=== PATIENT | male | born 1935 | race Caucasian/White ===

== ENCOUNTER 2017-08-24 09:42 | Observation (INO) | payer MEDICARE, BC ==
[2017-08-23 14:57] LABS: BASOPHILS # (AUTO) 0.1 X10'3 (0-0.2); BASOPHILS % (AUTO) 0.6 % (0-1); EOSINOPHILS # (AUTO) 0.4 X10'3 (0-0.9); EOSINOPHILS % (AUTO) 4.3 % (0-6); HEMATOCRIT 36.2 % (42.0-52.0); HEMOGLOBIN 12.8 g/dl (14.0-17.9); LYMPHOCYTES # (AUTO) 0.8 X10'3 (1.1-4.8); LYMPHOCYTES % (AUTO) 8.6 % (21-51); MEAN CORPUSCULAR HEMOGLOBIN 31.7 PG (27.0-31.0); MEAN CORPUSCULAR HGB CONC 35.4 % (33.0-36.5); MEAN CORPUSCULAR VOLUME 89.5 FL (78-98); MEAN PLATELET VOLUME 7.1 FL (7.4-10.4); MONOCYTES # (AUTO) 0.9 X10'3 (0-0.9); NEUTROPHILS # (AUTO) 7.2 X10'3 (1.8-7.7); NEUTROPHILS % (AUTO) 76.5 % (42-75); PLATELET COUNT 329 X10'3 (140-440); RED BLOOD COUNT 4.04 X10'6 (4.70-6.10); WHITE BLOOD COUNT 9.5 X10'3 (4.5-11.0)
[2017-08-23 15:07] LABS: INR 1.1 INR; PARTIAL THROMBOPLASTIN TIME 29 SECONDS (22-32)
[2017-08-23 15:08] LABS: ALBUMIN 3.4 G/DL (3.4-5.0); ANION GAP 11 (8-16); BLOOD UREA NITROGEN 36 MG/DL (7-18); BUN/CREATININE RATIO 15.9 (5.4-32.0); CALCIUM 8.9 MG/DL (8.5-10.1); CHLORIDE 105 MMOL/L (99-107); CREATININE 2.26 MG/DL (0.60-1.10); GLUCOSE 185 MG/DL (70-104); POTASSIUM 4.5 MMOL/L (3.5-5.1); SODIUM 142 MMOL/L (135-145); TOTAL CARBON DIOXIDE 25.6 MMOL/L (24-32); eGFR 28 ML/MIN
[~2017-08-24] VITALS: Ht 175.3 cm; Wt 102.3 kg
[2017-08-24] VITALS (22 sets, daily range): BP systolic 133–156; BP diastolic 64–108
[~2017-08-24 09:42] MED LIST: ASPI-1265 PO; CLOP75TA35 PO; GLIM1TAB46 PO; IND25C PO; LISI40TA4 PO; NIA500ERT PO; NITR0.4T51 SL; NOR5T PO; POTA99TA15 PO
[2017-08-24] MEDS ORDERED: LORazepam 0.5 MG tablet PO PRN (10:05)
[2017-08-24] MEDS ORDERED: diphenhydrAMINE 25mg capsule PO PRN (10:05)
[2017-08-24] MEDS ORDERED: sod bicarbonate 150mEq in D5W 1,150 ML IV ONE (10:10)
[2017-08-24] MEDS ORDERED: LIDOcaine 1% (10mg/ml) 2ml vial ONE (10:26)
[2017-08-24] MEDS ORDERED: ATOR20TA66 PO (10:31)
[2017-08-24] MEDS ORDERED: ISOS60TA4 PO (10:31)
[2017-08-24] MEDS ORDERED: AMLO10TA PO (10:31)
[2017-08-24] MEDS ORDERED: TIOT18CA3 IH (10:31)
[2017-08-24] MEDS ORDERED: LEVO25TA7 PO (10:31)
[2017-08-24] MEDS ORDERED: FURO20TA4 PO (10:35)
[2017-08-24] MEDS ORDERED: nitroGLYCERIN-Tridil 50MG/D5W 250 ML IV ONE (14:23)
[2017-08-24] MEDS ORDERED: midazolam 2 mg/2 ml injection ONE (14:23)
[2017-08-24] MEDS ORDERED: iohexol 350 MG/ML 50ML vial IV ONE (14:24)
[2017-08-24] MEDS ORDERED: iohexol 350MG/ML 100ml bottle IV ONE ×3 (14:24→16:06)
[2017-08-24] MEDS ORDERED: LIDOcaine 1%/PF (10mg/ml) 5ml vial ONE (14:24)
[2017-08-24] MEDS ORDERED: fentaNYL/PF 50MCG/1 ML 2ML syringe ONE (14:24)
[2017-08-24] MEDS ORDERED: heparin 1,000unit/ml 10ml vial 10 ML ONE (14:24)
[2017-08-24] MEDS ORDERED: clopidogrel 300mg tablet ONE (16:18)
[2017-08-24] MEDS ORDERED: nitroGLYCERIN 0.4mg SUBLingual tab SL SCH (17:15)
[2017-08-24] MEDS ORDERED: magnesium hydroxide 30ml (MOM) UD suspension PO PRN (17:25)
[2017-08-24] MEDS ORDERED: aspirin 325mg tablet PO ONE (17:25)
[2017-08-24] MEDS ORDERED: proCHLORperazine 10 MG/2 ml inj IV PRN (17:25)
[2017-08-24] MEDS ORDERED: acetaminophen 325mg tablet PO PRN (17:25)
[2017-08-24] MEDS ORDERED: OXAZEpam 15mg capsule PO PRN (17:30)
[2017-08-24] MEDS ORDERED: cyclobenzaprine 10mg tablet PO PRN (17:30)
[2017-08-24] MEDS ORDERED: furosemide 20 MG/2 ML vial IV ONE (18:00)
[2017-08-24] MEDS: ipratropium 0.5 MG/2.5ML nebule IH SCH (20:00)
[2017-08-24] MEDS ORDERED: acetylcysteine 200 MG/ml 4ml vial PO SCH (20:00)
[2017-08-24] MEDS ORDERED: acetylcysteine 200mg/ml 30ml oral solution (vial) MC SCH (20:00)
[2017-08-24] MEDS ORDERED: amLODIPine 5mg tablet PO ONE (21:30)
[2017-08-24] MEDS ORDERED: hydrALAZINE 20mg/ml inj. IV PRN (21:30)
[2017-08-24] MEDS: HYDROcodone/acetaminophen 10/325mg tab PO PRN (22:23)
[2017-08-24] MEDS: docusate sod 100mg capsule PO SCH (22:30)
[2017-08-24] MEDS: sod bicarbonate 150mEq in D5W 1,150 ML IV SCH (22:30)
[2017-08-25] VITALS (9 sets, daily range): BP systolic 110–148; BP diastolic 60–73
[2017-08-25] MEDS: ipratropium 0.5 MG/2.5ML nebule IH SCH ×2 (02:11→08:00)
[2017-08-25] MEDS: HYDROcodone/acetaminophen 10/325mg tab PO PRN (04:14)
[2017-08-25] MEDS: sod bicarbonate 150mEq in D5W 1,150 ML IV SCH (04:51)
[2017-08-25 05:56] LABS: BASOPHILS % (AUTO) 0.2 % (0-1); EOSINOPHILS # (AUTO) 0.2 X10'3 (0-0.9); EOSINOPHILS % (AUTO) 1.7 % (0-6); HEMOGLOBIN 12.1 g/dl (14.0-17.9); LYMPHOCYTES # (AUTO) 0.4 X10'3 (1.1-4.8); LYMPHOCYTES % (AUTO) 3.3 % (21-51); MEAN CORPUSCULAR HEMOGLOBIN 31.3 PG (27.0-31.0); MEAN CORPUSCULAR HGB CONC 35.4 % (33.0-36.5); MEAN CORPUSCULAR VOLUME 88.5 FL (78-98); MEAN PLATELET VOLUME 7.2 FL (7.4-10.4); MONOCYTES # (AUTO) 1.2 X10'3 (0-0.9); MONOCYTES % (AUTO) 9.2 % (2-12); NEUTROPHILS # (AUTO) 11.5 X10'3 (1.8-7.7); NEUTROPHILS % (AUTO) 85.6 % (42-75); PLATELET COUNT 287 X10'3 (140-440); RED BLOOD COUNT 3.85 X10'6 (4.70-6.10); RED CELL DISTRIBUTION WIDTH 16.5 % (11.5-14.5); WHITE BLOOD COUNT 13.4 X10'3 (4.5-11.0)
[2017-08-25 06:09] LABS: ALBUMIN 3.1 G/DL (3.4-5.0); ANION GAP 8 (8-16); BLOOD UREA NITROGEN 30 MG/DL (7-18); BUN/CREATININE RATIO 14.1 (5.4-32.0); CALCIUM 8.6 MG/DL (8.5-10.1); CHLORIDE 102 MMOL/L (99-107); CREATININE 2.13 MG/DL (0.60-1.10); GLUCOSE 179 MG/DL (70-104); POTASSIUM 4.4 MMOL/L (3.5-5.1); SODIUM 140 MMOL/L (135-145); TOTAL CARBON DIOXIDE 29.8 MMOL/L (24-32); eGFR 30 ML/MIN
[2017-08-25] MEDS: docusate sod 100mg capsule PO SCH (07:46)
[2017-08-25] MEDS ORDERED: METO25TA6 PO (07:54)
[2017-08-25] MEDS ORDERED: ASPI-1 PO (07:54)
[2017-08-25] MEDS ORDERED: APIX5TAB3 PO (07:54)
[2017-08-25] MEDS ORDERED: acetylcysteine 200 MG/ml 4ml vial PO SCH (08:00)
[2017-08-25] MEDS ORDERED: clopidogrel 75mg tablet PO SCH (08:00)
[2017-08-25] MEDS ORDERED: metoprolol tartrate 25mg tablet PO SCH (08:00)
[2017-08-25] MEDS ORDERED: levoTHYROXINE 25mcg tablet PO SCH (08:00)
[2017-08-25] MEDS ORDERED: isosorbide mononitrate 30mg tab.SR.24H PO SCH (08:00)
[2017-08-25] MEDS ORDERED: amLODIPine 5mg tablet PO SCH (08:00)
[2017-08-25] MEDS ORDERED: furosemide 20MG tablet PO SCH (08:00)
[2017-08-25] MEDS ORDERED: apixaban 5mg tablet PO SCH (08:00)
[2017-08-25] MEDS ORDERED: atorvastatin 20mg tablet PO SCH (08:00)
[2017-08-25] MEDS ORDERED: aspirin 325mg tablet PO SCH ×2 (08:30)
== END 2017-08-25 12:12 | disposition home or self-care (01) ==
LOC: SSTAY O 09:42 → PCU 3S 20:19
PROVIDERS: ADMIT Internal Medicine Cardiovascular Disease; ATTEND Internal Medicine Cardiovascular Disease
DX: I25.110 Atherosclerotic heart disease of native coronary artery with unstable angina pectoris (principal); E78.5 Hyperlipidemia, unspecified; I48.91 Unspecified atrial fibrillation; I13.0 Hypertensive heart and chronic kidney disease with heart failure and stage 1 through stage 4 chronic kidney disease, or unspecified chronic kidney disease; E11.22 Type 2 diabetes mellitus with diabetic chronic kidney disease; N18.9 Chronic kidney disease, unspecified; I50.9 Heart failure, unspecified; Z98.61 Coronary angioplasty status
CPT/HCPCS: 36415; 80048; 82948; 85025; 85347; 85610; 85730; 93005; 93458; 94640; 94760; 96365; 96366; 96375; A6257; A6449; C1725; C1769; C1874; C9600; G0378; J1644; J1940; J2001; J2250; J3010; J3490; J7030; Q0163; Q9967; 99152; 99153; A4620